=== PATIENT | female | born 1965 | race Caucasian/White ===

== ENCOUNTER 2019-05-27 14:09 | Inpatient (IN) | payer MEDICAID ==
[~2019-05-27] VITALS: Ht 162.6 cm; Wt 84.3 kg
[2019-05-27 14:43] LABS: MEAN PLATELET VOLUME 10.2 FL (7.4-10.4); PLATELET COUNT 291 X10'3 (140-440); WHITE BLOOD COUNT 13.6 X10'3 (4.5-11.0)
[2019-05-27] MEDS ORDERED: normal saline 1000ML IV soln IVB ONE ×2 (14:50→15:35)
[2019-05-27] MEDS ORDERED: LORazepam 2 mg/ml vial IV ONE (15:00)
[2019-05-27] MEDS ORDERED: metoclopramide 5 mg/ml inj IV ONE (15:00)
[2019-05-27 15:11] LABS: HEMATOCRIT 38.7 % (35.0-45.0); MEAN CORPUSCULAR HEMOGLOBIN 28.7 PG (27.0-31.0); MEAN CORPUSCULAR VOLUME 87.1 FL (78-98); RED BLOOD COUNT 4.45 X10'6 (4.20-5.60); RED CELL DISTRIBUTION WIDTH 14.4 % (11.5-14.5)
[2019-05-27 15:12] LABS: HEMOGLOBIN 12.8 g/dl (12.0-16.0)
[2019-05-27 15:15] LABS: ALANINE AMINOTRANSFERASE 39 U/L (12-78); ALBUMIN 4.1 G/DL (3.4-5.0); ALBUMIN/GLOBULIN RATIO 1.1 (1.1-1.5); ALKALINE PHOSPHATASE 167 IU/L (46-116); ANION GAP 22 (8-16); BILIRUBIN,TOTAL 0.4 MG/DL (0.1-1.0); BLOOD UREA NITROGEN 11 MG/DL (7-18); BUN/CREATININE RATIO 13.6 (6.6-38.0); CALCIUM 9.3 MG/DL (8.5-10.1); CHLORIDE 100 MMOL/L (99-107); CREATININE 0.81 MG/DL (0.40-0.90); GLUCOSE 322 MG/DL (70-104); SODIUM 136 MMOL/L (135-145); TOTAL PROTEIN 7.7 G/DL (6.4-8.2); eGFR 75 ML/MIN
[2019-05-27 15:20] LABS: PLATELET ESTIMATE NORMAL; TOTAL CELLS COUNTED 100
[2019-05-27] MEDS ORDERED: fentaNYL/PF 50MCG/1 ML 2ML syringe IV ONE (15:20)
[2019-05-27 15:21] LABS: ANISOCYTOSIS 1+; LARGE PLATELETS FEW
[2019-05-27 15:26] LABS: ASPARTATE AMINO TRANSFERASE 38 U/L (10-37); POTASSIUM 4.3 MMOL/L (3.5-5.1)
[2019-05-27 15:28] LABS: LIPASE 11108 U/L (73-393)
[2019-05-27 15:30] LABS: TOTAL CARBON DIOXIDE 13.8 MMOL/L (24-32)
[2019-05-27 16:16] LABS: ABG BASE EXCESS -7.9 mmol/L (-2.0-3.0); ABG PH (T) 7.331 (7.350-7.450); ALLEN'S TEST POSITIVE; FCOHb 2.1 % (0.5-1.5); FMetHb 0.1 % (0.3-1.12); FO2Hb 92.9 % (94-100); TOTAL HEMOGLOBIN 12.5 G/dl (12.0-16.0)
[2019-05-27] MEDS ORDERED: proCHLORperazine 10 MG/2 ml inj IV STA (16:31)
[2019-05-27] MEDS ORDERED: ketorolac trometh. 30mg/ml inj. IV ONE (16:45)
[2019-05-27 16:52] LABS: CLARITY,URINE CLEAR (Clear); COLOR,URINE YELLOW (Yellow); GLUCOSE, URINE >=1000 mg/dl (Neg); KETONES,URINE 40 mg/dl (Neg); LEUKOCYTE ESTERASE ,URINE NEGATIVE (Neg); NITRITES, URINE NEGATIVE (Neg); OCCULT BLOOD,URINE NEGATIVE (Neg); PROTEIN,URINE TRACE mg/dl (Neg); URINE HCG NEGATIVE (NEG); UROBILINOGEN,URINE 0.2 E.U/dL (0.2-1.0)
[2019-05-27 17:08] LABS: UA COLLECTION TYPE STRAIGHT CATH
[2019-05-27 17:09] LABS: BACTERIA,URINE NONE SEEN /HPF (Neg); MUCUS STRANDS FEW /LPF (Neg); RBC,URINE NONE SEEN /HPF (0-2); SQUAMOUS EPITHELIAL CELL,UR NONE SEEN /LPF (FEW); WBC,URINE NONE SEEN /HPF (0-4)
--- NOTE | 2019-05-27 17:16 | NUR ---
spoke to md valadez regarding bg of 271 and [address] insulin order. Dr. Valadez said to hold off on insulin bolus and IV insulin drip
--- NOTE | 2019-05-27 17:20 | NUR ---
Spoke to dr. valadez and he wants the insulin drip at 3mls/hr but no insulin bolus. spoke to him of the cp pt. is experiencing and he wants a repeat ekg
[2019-05-27] MEDS ORDERED: normal saline 1000ml 1,000 ML IV SCH ×2 (17:23→18:27)
[2019-05-27] MEDS ORDERED: mag hydrox/Alum hydrox/simeth 30ml oral suspension PO PRN (17:25)
[2019-05-27] MEDS: Insulin Reg/NS 100units/100mL 100 ML IV PRN ×2 (17:25→23:27)
[2019-05-27] MEDS ORDERED: magnesium hydroxide 30ml (MOM) UD suspension PO PRN (17:25)
[2019-05-27] MEDS ORDERED: potassium Cl 20 mEq SR tablet PO PRN ×4 (17:25→18:30)
[2019-05-27] MEDS ORDERED: acetaminophen 325mg tablet PO PRN (17:25)
[2019-05-27] MEDS ORDERED: ondansetron/PF 4mg/2ml inj IV PRN (17:25)
[2019-05-27] MEDS ORDERED: potassium CL 10mEq/100ml bag 100 ML IV PRN ×4 (17:25→18:30)
[2019-05-27] MEDS ORDERED: magnesium 4gm in 100ml NS 100 ML IV PRN (17:25)
[2019-05-27] MEDS ORDERED: magnesium Cl slow-release 64mg tablet PO PRN (17:25)
[2019-05-27] MEDS ORDERED: magnesium 2GM in 50ml NS 50 ML IV PRN (17:25)
[2019-05-27] MEDS ORDERED: MULT-467 PO (18:12)
[2019-05-27] MEDS ORDERED: ASCO500C15 PO (18:12)
[2019-05-27] MEDS ORDERED: FAMO20TA8 PO (18:12)
[2019-05-27] MEDS ORDERED: MELA3TAB64 PO (18:12)
[2019-05-27] MEDS ORDERED: Insulin Reg/NS 100units/100mL 100 ML IV SCH (18:27)
[2019-05-27] MEDS ORDERED: sodium bicarbonate (8.4%) inj. 50 MEQ in dextrose 5% water 500ml 250 ML IV PRN (18:27)
[2019-05-27] MEDS ORDERED: sodium bicarbonate (8.4%) inj. 100 MEQ in dextrose 5% water 500ml 500 ML IV PRN (18:27)
[2019-05-27] MEDS ORDERED: insulin regular, human vial - multi-dose IV PRN (18:30)
[2019-05-27] MEDS ORDERED: sodium phosphate inj. 30 MMOL in dextrose 5%-water 250 ML IV PRN (18:30)
[2019-05-27] MEDS ORDERED: Neutra Phos packet PO PRN (18:30)
[2019-05-27] MEDS ORDERED: sodium phosphate inj. 15 MMOL in dextrose 5%-water 150 ML IV PRN (18:30)
--- NOTE | 2019-05-27 19:00 | NUR ---
Patient in room PCU 3024. I have received report from Hermelindo PEREZ by phone and had the opportunity to ask questions and assume patient care.
[2019-05-27 19:08] LABS: TOTAL CARBON DIOXIDE 16.6 MMOL/L (24-32)
[2019-05-27 19:15] VITALS: BP 170/90
[2019-05-27 19:58] LABS: ANION GAP 18 (8-16); BLOOD UREA NITROGEN 7 MG/DL (7-18); BUN/CREATININE RATIO 10.3 (6.6-38.0); CALCIUM 8.2 MG/DL (8.5-10.1); CHLORIDE 101 MMOL/L (99-107); CREATININE 0.68 MG/DL (0.40-0.90); GLUCOSE 304 MG/DL (70-104); SODIUM 136 MMOL/L (135-145); eGFR > 90 ML/MIN
[2019-05-27 19:59] LABS: ALBUMIN 3.8 G/DL (3.4-5.0); CHOL/HDL RATIO 15.4 (0.00-4.99); CHOLESTEROL 432 MG/DL (0-200); HDL CHOLESTEROL 28 MG/DL (35-60); LDL CHOLESTEROL 83 MG/DL (50-100); MAGNESIUM 1.2 MG/DL (1.5-2.4); PHOSPHORUS 2.8 MG/DL (2.3-4.5); POTASSIUM 4.3 MMOL/L (3.5-5.1)
[2019-05-27] MEDS: K and/or MAG REPLACEMENT MC SCH ×2 (20:00)
[2019-05-27] MEDS: famotidine 20mg tablet PO SCH (20:00)
[2019-05-27] MEDS ORDERED: famotidine/PF 10 mg/ml inj IV SCH (20:00)
[2019-05-27 20:20] LABS: TRIGLYCERIDES 4381 MG/DL (20-135)
[2019-05-27] MEDS ORDERED: dextrose 5%-1/2 normal saline 1,000 ML IV SCH (21:25)
[2019-05-27] MEDS: Melatonin 3mg tablet PO SCH (21:58)
[2019-05-27 22:00] VITALS: BP 146/99
[2019-05-27 22:36] LABS: ALBUMIN 2.8 G/DL (3.4-5.0); ANION GAP 15 (8-16); CHLORIDE 97 MMOL/L (99-107); GLUCOSE 321 MG/DL (70-104); POTASSIUM 3.8 MMOL/L (3.5-5.1); SODIUM 129 MMOL/L (135-145); TOTAL CARBON DIOXIDE 16.7 MMOL/L (24-32)
[2019-05-27 22:37] LABS: BLOOD UREA NITROGEN 2 MG/DL (7-18); BUN/CREATININE RATIO 5.1 (6.6-38.0); CREATININE 0.39 MG/DL (0.40-0.90); PHOSPHORUS 1.9 MG/DL (2.3-4.5); eGFR > 90 ML/MIN
[2019-05-27 22:39] LABS: CALCIUM 5.7 MG/DL (8.5-10.1); MAGNESIUM 0.9 MG/DL (1.5-2.4)
[2019-05-27] MEDS: potassium CL 20mEq in D5-1/2NS 1,000 ML IV PRN ×2 (22:48→23:28)
[2019-05-28] MEDS: potassium CL 20mEq in D5-1/2NS 1,000 ML IV PRN ×3 (00:14→20:02)
[2019-05-28] MEDS: ketorolac trometh. 30mg/ml inj. IV PRN ×2 (00:18→14:03)
[2019-05-28 02:00] VITALS: BP 123/71
[2019-05-28 02:02] LABS: ALBUMIN 2.8 G/DL (3.4-5.0); ANION GAP 15 (8-16); CALCIUM 6.2 MG/DL (8.5-10.1); CHLORIDE 98 MMOL/L (99-107); SODIUM 128 MMOL/L (135-145); TOTAL CARBON DIOXIDE 15.5 MMOL/L (24-32)
[2019-05-28 02:17] LABS: CREATININE 0.44 MG/DL (0.40-0.90); GLUCOSE 291 MG/DL (70-104); eGFR > 90 ML/MIN
[2019-05-28 02:18] LABS: MAGNESIUM 2.5 MG/DL (1.5-2.4)
[2019-05-28 02:37] LABS: BLOOD UREA NITROGEN 6 MG/DL (7-18); BUN/CREATININE RATIO 13.6 (6.6-38.0)
--- NOTE | 2019-05-28 05:00 | NUR ---
END NOC NOTE Patient had critical Magnesium and Calcium, MD Rich notified, no new orders for calcium replacement and will replace magnesium by protocol. Will continue to monitor.
[2019-05-28 06:30] VITALS: BP 97/53
--- NOTE | 2019-05-28 06:42 | NUR ---
Problems reprioritized. Patient report given, questions answered & plan of care reviewed with Mary PEREZ.
[2019-05-28 06:54] LABS: ALBUMIN 2.6 G/DL (3.4-5.0); ANION GAP 10 (8-16); BLOOD UREA NITROGEN 6 MG/DL (7-18); BUN/CREATININE RATIO 7.7 (6.6-38.0); CALCIUM 6.8 MG/DL (8.5-10.1); CHLORIDE 100 MMOL/L (99-107); CREATININE 0.78 MG/DL (0.40-0.90); GLUCOSE 213 MG/DL (70-104); PHOSPHORUS 2.2 MG/DL (2.3-4.5); POTASSIUM 3.6 MMOL/L (3.5-5.1); SODIUM 131 MMOL/L (135-145); TOTAL CARBON DIOXIDE 21.2 MMOL/L (24-32); eGFR 78 ML/MIN
--- NOTE | 2019-05-28 06:56 | NUR ---
Patient in room PCU 3024. I have received report from ANA ZUNIGA and had the opportunity to ask questions and assume patient care.
[2019-05-28 07:20] LABS: HEMATOCRIT 39.5 % (35.0-45.0); HEMOGLOBIN 12.3 g/dl (12.0-16.0); MEAN CORPUSCULAR HEMOGLOBIN 27.2 PG (27.0-31.0); MEAN CORPUSCULAR HGB CONC 31.2 g/dL (33.0-36.5); MEAN CORPUSCULAR VOLUME 87.3 FL (78-98); MEAN PLATELET VOLUME 11.4 FL (7.4-10.4); PLATELET COUNT 268 X10'3 (140-440); RED BLOOD COUNT 4.52 X10'6 (4.20-5.60); RED CELL DISTRIBUTION WIDTH 14.7 % (11.5-14.5)
[2019-05-28 07:22] LABS: LIPASE 5119 U/L (73-393)
[2019-05-28 07:38] LABS: HEMOGLOBIN A1C 12.7 % (4.5-6.2)
[2019-05-28] MEDS: ascorbic acid 500mg tablet PO SCH (07:52)
[2019-05-28] MEDS: multivitamins, therapeutics tablet PO SCH (07:52)
[2019-05-28] MEDS: famotidine 20mg tablet PO SCH ×2 (07:52→19:54)
[2019-05-28] MEDS: enoxaparin 40mg/0.4ml syringe SQ SCH (07:53)
[2019-05-28] MEDS ORDERED: glucagon, human recombinant 1mg kit SUBCUT PRN (07:55)
[2019-05-28] MEDS ORDERED: dextrose 50%-water 50ml dispensing syringe IV PRN ×2 (07:55)
[2019-05-28] MEDS ORDERED: dextrose ORAL solution 15 GM/59 ML bottle PO PRN ×2 (07:55)
[2019-05-28] MEDS: K and/or MAG REPLACEMENT MC SCH ×4 (08:00→20:00)
--- NOTE | 2019-05-28 08:03 | NUR ---
PAGED DR. MONDRAGON PAGER ID: [phone] MESSAGE: NAIMA GUZMÁN [id number] LESLIE ANTONIO PT AG 10 CO2 21.2 ON INSULIN @4 D5 1/2 NS@ 50 PT ATE BREAKFAST CURRENT BLOOD SUGAR 192 DO YOU WANT TO TREAT PER PROTOCOL
--- NOTE | 2019-05-28 08:14 | NUR ---
spoke to DR. Noguera she wants to keep pt NPO. cover the carbs from breakfast per protocol. keep pt on insulin gtt. Addendum: 05/28/19 at 0817 by Mary Dozier RN pharmacy has been called for don
[2019-05-28 08:18] LABS: TOTAL CELLS COUNTED 100
[2019-05-28 08:20] LABS: PLATELET ESTIMATE NORMAL
[2019-05-28 08:21] LABS: LARGE PLATELETS FEW; POLYCHROMASIA FEW; SPHEROCYTES FEW
[2019-05-28] MEDS: insulin Lispro (HumaLOG) vial - multi-dose SQ SCH (08:38)
[2019-05-28] MEDS: acetaminophen 325mg tablet PO PRN ×2 (08:47→16:52)
[2019-05-28] MEDS ORDERED: sodium phosphate inj. 15 MMOL in dextrose 5%-water 250 ML IV PRN (09:02)
[2019-05-28 10:49] LABS: ALBUMIN 2.4 G/DL (3.4-5.0); ANION GAP 9 (8-16); BLOOD UREA NITROGEN 10 MG/DL (7-18); BUN/CREATININE RATIO 9.9 (6.6-38.0); CALCIUM 7.1 MG/DL (8.5-10.1); CHLORIDE 101 MMOL/L (99-107); CREATININE 1.01 MG/DL (0.40-0.90); SODIUM 130 MMOL/L (135-145); TOTAL CARBON DIOXIDE 19.6 MMOL/L (24-32); eGFR 58 ML/MIN
[2019-05-28 10:50] LABS: GLUCOSE 266 MG/DL (70-104); POTASSIUM 3.5 MMOL/L (3.5-5.1)
[2019-05-28 10:59] VITALS: BP 97/49
--- NOTE | 2019-05-28 11:34 | NUR ---
PAGED DR. MONDRAGON promotional table spacer PAGER ID: [phone] MESSAGE: MARY GUZMÁN 6219 LESLIE ANTONIO AG 9 AND C02 19.6 INSULIN @ 4 D5 1/2NS 20K @ 50 BLOOD SUGAR 224. DO YOU WANT ANY CHANGES? Addendum: 05/28/19 at 1140 by Mary Dozier RN SPOKE WITH ALANNA KNOWLES. SHE WANTS INSULIN, FLUIDS ALL TO REMAIN THE SAME. SHE DOES NOT WANT ANY CHANGES
[2019-05-28] MEDS: Insulin Reg/NS 100units/100mL 100 ML IV PRN (14:05)
[2019-05-28 15:26] LABS: ALBUMIN 2.4 G/DL (3.4-5.0); ANION GAP 13 (8-16); BLOOD UREA NITROGEN 10 MG/DL (7-18); BUN/CREATININE RATIO 10.6 (6.6-38.0); CALCIUM 7.4 MG/DL (8.5-10.1); CHLORIDE 100 MMOL/L (99-107); CREATININE 0.94 MG/DL (0.40-0.90); SODIUM 133 MMOL/L (135-145); TOTAL CARBON DIOXIDE 20.5 MMOL/L (24-32); eGFR 63 ML/MIN
[2019-05-28 15:31] LABS: GLUCOSE 189 MG/DL (70-104); POTASSIUM 3.3 MMOL/L (3.5-5.1)
[2019-05-28 15:33] VITALS: BP 98/49
--- NOTE | 2019-05-28 15:45 | NUR ---
PAGED DR. MONDRAGON PAGER ID: [phone] MESSAGE: NAIMA U 3031 PACO, LESLIE HAS ONLY VOIDED ONE TIME TODAY 75ML, BLADDER SCANNED ONLY 39ML IN BLADDER. K 3.3. THANK YOU
--- NOTE | 2019-05-28 15:53 | NUR ---
SPOKE WITH DR. MONDRAGON NOTIFIED HER OF POOR URINE OUTPUT AND ONLY 39ML WHEN BLADDER SCANNED, NO URGE TO VOID. BP'S ON THE LOWER SIDE. K 3.3 INCREASE OF CREATNINE 0.94. ASKED IF WE SHOULD D/C TORADOL. PER DR. MONDRAGON D/C TORADOL. GIVE 20K PO X1 INCREASE D5 1/2NS W/ 20 K TO 100.
[2019-05-28] MEDS ORDERED: potassium Cl 20 mEq SR tablet PO STA ×2 (15:59→16:37)
--- NOTE | 2019-05-28 16:40 | NUR ---
per dr. pal increase iv fluids to 150, increase insulin to 5units, give 40k po now. abg in am lipase in am, watch urine output
[2019-05-28 18:00] VITALS: BP 93/59
--- NOTE | 2019-05-28 18:00 | NUR ---
Patient in room PCU 3024. I have received report from Mary PEREZ and had the opportunity to ask questions and assume patient care.
--- NOTE | 2019-05-28 18:10 | NUR ---
Problems reprioritized. Patient report given, questions answered & plan of care reviewed with ANA ZUNIGA.
[2019-05-28 19:50] LABS: ALBUMIN 2.3 G/DL (3.4-5.0); ANION GAP 8 (8-16); BLOOD UREA NITROGEN 10 MG/DL (7-18); CHLORIDE 102 MMOL/L (99-107); SODIUM 132 MMOL/L (135-145); TOTAL CARBON DIOXIDE 22.3 MMOL/L (24-32); eGFR 58 ML/MIN
[2019-05-28] MEDS: Melatonin 3mg tablet PO SCH (19:55)
[2019-05-28 20:02] LABS: GLUCOSE 170 MG/DL (70-104); POTASSIUM 3.6 MMOL/L (3.5-5.1)
[2019-05-28] MEDS: insulin glargine (Lantus) pen - multi-dose SQ SCH (21:00)
[2019-05-28 22:00] VITALS: BP 110/48
[2019-05-28] MEDS: traMADol 50MG tablet PO PRN (22:52)
[2019-05-29] VITALS (7 sets, daily range): BP systolic 86–116; BP diastolic 56–77
--- NOTE | 2019-05-29 03:40 | NUR ---
PAGER ID: [phone] MESSAGE: [phone] Agustina Lyles: Patient is an unbelievably difficult stick for labs, still unable to get labs, can I get an order for a PICC? DKA 2 days Q4 hour labs. Cherri PEREZ [id number]
[2019-05-29 04:00] LABS: BASOPHILS # (AUTO) 0.1 X10'3 (0-0.2); BASOPHILS % (AUTO) 0.5 % (0-1); EOSINOPHILS # (AUTO) 0.4 X10'3 (0-0.9); HEMATOCRIT 32.5 % (35.0-45.0); HEMOGLOBIN 11.1 g/dl (12.0-16.0); LYMPHOCYTES # (AUTO) 2.4 X10'3 (1.1-4.8); LYMPHOCYTES % (AUTO) 16.6 % (21-51); MEAN CORPUSCULAR HEMOGLOBIN 28.9 PG (27.0-31.0); MEAN PLATELET VOLUME 9.5 FL (7.4-10.4); MONOCYTES # (AUTO) 0.9 X10'3 (0-0.9); NEUTROPHILS # (AUTO) 10.8 X10'3 (1.8-7.7); NEUTROPHILS % (AUTO) 73.9 % (42-75); PLATELET COUNT 207 X10'3 (140-440); RED BLOOD COUNT 3.83 X10'6 (4.20-5.60); RED CELL DISTRIBUTION WIDTH 14.3 % (11.5-14.5); WHITE BLOOD COUNT 14.7 X10'3 (4.5-11.0)
[2019-05-29 04:07] LABS: ALBUMIN 2.1 G/DL (3.4-5.0); ANION GAP 10 (8-16); BLOOD UREA NITROGEN 8 MG/DL (7-18); BUN/CREATININE RATIO 9.2 (6.6-38.0); CALCIUM 7.5 MG/DL (8.5-10.1); CHLORIDE 104 MMOL/L (99-107); CREATININE 0.87 MG/DL (0.40-0.90); GLUCOSE 175 MG/DL (70-104); LIPASE 1366 U/L (73-393); PHOSPHORUS 1.7 MG/DL (2.3-4.5); SODIUM 133 MMOL/L (135-145); TOTAL CARBON DIOXIDE 19.4 MMOL/L (24-32); eGFR 69 ML/MIN
[2019-05-29 04:08] LABS: POTASSIUM 4.3 MMOL/L (3.5-5.1)
--- NOTE | 2019-05-29 06:29 | NUR ---
Patient in room PCU 3024. I have received report from Cherri PEREZ and had the opportunity to ask questions and assume patient care.
--- NOTE | 2019-05-29 06:49 | NUR ---
Problems reprioritized. Patient report given, questions answered & plan of care reviewed with Tatyana PEREZ.
[2019-05-29 07:33] LABS: ALBUMIN 2.2 G/DL (3.4-5.0); ANION GAP 9 (8-16); BLOOD UREA NITROGEN 9 MG/DL (7-18); BUN/CREATININE RATIO 10.3 (6.6-38.0); CALCIUM 7.9 MG/DL (8.5-10.1); CHLORIDE 105 MMOL/L (99-107); CREATININE 0.87 MG/DL (0.40-0.90); GLUCOSE 152 MG/DL (70-104); PHOSPHORUS 1.8 MG/DL (2.3-4.5); SODIUM 134 MMOL/L (135-145); TOTAL CARBON DIOXIDE 19.7 MMOL/L (24-32); eGFR 69 ML/MIN
[2019-05-29 07:38] LABS: POTASSIUM 4.1 MMOL/L (3.5-5.1)
[2019-05-29] MEDS: multivitamins, therapeutics tablet PO SCH (07:38)
[2019-05-29] MEDS: ascorbic acid 500mg tablet PO SCH (07:38)
[2019-05-29] MEDS: famotidine 20mg tablet PO SCH ×2 (07:38→18:56)
[2019-05-29] MEDS: enoxaparin 40mg/0.4ml syringe SQ SCH (07:39)
[2019-05-29] MEDS: potassium CL 20mEq in D5-1/2NS 1,000 ML IV PRN ×4 (07:44→22:29)
[2019-05-29] MEDS: K and/or MAG REPLACEMENT MC SCH ×4 (07:46→20:00)
[2019-05-29] MEDS ORDERED: sodium bicarbonate (8.4%) inj. 50 MEQ in dextrose 5% water 500ml 250 ML IV PRN (10:43)
[2019-05-29] MEDS ORDERED: sodium bicarbonate (8.4%) inj. 100 MEQ in dextrose 5% water 500ml 500 ML IV PRN (10:43)
--- NOTE | 2019-05-29 11:00 | NUR ---
Dr. Cope at bedside, discussed with MD that pts chemistries had corrected but Lipase level was at 1366. Per Dr. Cope, do not stop the insulin gtt or fluids. Received a verbal order to just go ahead and titrate the insulin down to one if needed. Per MD, the patient will most likely eat tomorrow, depending on the lipase lab level. Will continue to monitor closely.
[2019-05-29] MEDS: Insulin Reg/NS 100units/100mL 100 ML IV SCH (12:19)
[2019-05-29 12:22] LABS: ALBUMIN 2.3 G/DL (3.4-5.0); ANION GAP 5 (8-16); BLOOD UREA NITROGEN 7 MG/DL (7-18); BUN/CREATININE RATIO 8.6 (6.6-38.0); CALCIUM 7.9 MG/DL (8.5-10.1); CHLORIDE 105 MMOL/L (99-107); CREATININE 0.81 MG/DL (0.40-0.90); GLUCOSE 156 MG/DL (70-104); MAGNESIUM 1.7 MG/DL (1.5-2.4); PHOSPHORUS 1.7 MG/DL (2.3-4.5); SODIUM 134 MMOL/L (135-145); TOTAL CARBON DIOXIDE 23.7 MMOL/L (24-32); eGFR 75 ML/MIN
[2019-05-29 12:26] LABS: POTASSIUM 4.3 MMOL/L (3.5-5.1)
[2019-05-29] MEDS: acetaminophen 325mg tablet PO PRN (12:27)
--- NOTE | 2019-05-29 13:31 | NUR ---
DM consult: Pt admitted for acute pancreatitis and DKA. Pt A1c currently documented at 12.7. RD internal communications writer visited pt at bedside and provided written and verbal pancreatitis education, hypertriglyceride education and DM education with referral to CDE course and RD contact information. Pt reports she has not taken her DM meds for a year d/t running out and her insurance not covering it. She also reports not checking her blood sugar. She states she is currently in the process of switching her doctor to [facility] and will make an appointment with them once the paperwork is processed. RD internal communications writer encouraged pt to have regular doctor visits for her DM management. Pt reports frequently getting pancreatitis, almost once a month, RD internal communications writer emphasized the importance of a low fat diet and proper DM management. Pt reports allergy to honey, d/w dietary. LB 2/. Will continue to monitor. rec: 1. advanced diet as medically indicated to low fat, carb controlled diet 2. bowel care as needed 3. weight per rx Addendum: 05/29/19 at [address] Amended: Links added. Addendum: 05/29/19 at [address] RD agree with note
[2019-05-29 15:53] LABS: ALBUMIN 2.4 G/DL (3.4-5.0); ANION GAP 9 (8-16); BLOOD UREA NITROGEN 6 MG/DL (7-18); BUN/CREATININE RATIO 7.8 (6.6-38.0); CALCIUM 8.4 MG/DL (8.5-10.1); CHLORIDE 107 MMOL/L (99-107); CREATININE 0.77 MG/DL (0.40-0.90); GLUCOSE 123 MG/DL (70-104); MAGNESIUM 1.8 MG/DL (1.5-2.4); PHOSPHORUS 1.6 MG/DL (2.3-4.5); SODIUM 138 MMOL/L (135-145); TOTAL CARBON DIOXIDE 21.7 MMOL/L (24-32); eGFR 79 ML/MIN
[2019-05-29 15:54] LABS: POTASSIUM 4.2 MMOL/L (3.5-5.1)
[2019-05-29] MEDS ORDERED: Insulin Reg/NS 100units/100mL 100 ML IV PRN (16:32)
[2019-05-29] MEDS: traMADol 50MG tablet PO PRN (17:09)
--- NOTE | 2019-05-29 18:00 | NUR ---
Patient in room PCU 3024. I have received report from Tatyana PEREZ and had the opportunity to ask questions and assume patient care.
--- NOTE | 2019-05-29 18:06 | NUR ---
Problems reprioritized. Patient report given, questions answered & plan of care reviewed with Cherri PEREZ.
--- NOTE | 2019-05-29 18:08 | NUR ---
Changed pts insulin gtt to 3 u/hr per orders, notified PAGER ID: [phone] MESSAGE: David [phone] Robert [id number], FYI, per protocol and following your orders, I decreased the pts insulin gtt to 3u/hr due to pts blood glucose trending down to 101. Will continue to monitor closely.
[2019-05-29] MEDS: Melatonin 3mg tablet PO SCH (18:57)
--- NOTE | 2019-05-29 19:09 | NUR ---
PAGER ID: [phone] MESSAGE: [phone] Agustina Lyles: Kidney function improved, still having a migraine, Tylenol and tramadol not working now for two days. Order for something stronger? Cherri PEREZ [phone]
[2019-05-29 20:17] LABS: ALBUMIN 2.3 G/DL (3.4-5.0); ANION GAP 7 (8-16); BLOOD UREA NITROGEN 6 MG/DL (7-18); BUN/CREATININE RATIO 8.1 (6.6-38.0); CALCIUM 8.2 MG/DL (8.5-10.1); CHLORIDE 107 MMOL/L (99-107); CREATININE 0.74 MG/DL (0.40-0.90); GLUCOSE 157 MG/DL (70-104); MAGNESIUM 1.7 MG/DL (1.5-2.4); PHOSPHORUS 1.8 MG/DL (2.3-4.5); POTASSIUM 4.3 MMOL/L (3.5-5.1); SODIUM 136 MMOL/L (135-145); TOTAL CARBON DIOXIDE 22.3 MMOL/L (24-32); eGFR 83 ML/MIN
[2019-05-29] MEDS ORDERED: aspirin/acetaminophen/caffeine tablet PO PRN (20:50)
[2019-05-29] MEDS: insulin glargine (Lantus) pen - multi-dose SQ SCH (21:00)
--- NOTE | 2019-05-29 21:14 | NUR ---
PAGER ID: [phone] MESSAGE: [phone] Agustina Lyles: Pharmacy out of Excedrin, can we try Imitrex instead then? Cherri PEREZ [phone]
[2019-05-29] MEDS: SUMAtriptan 25 MG tablet PO PRN (22:14)
[2019-05-29 23:59] LABS: ALBUMIN 2.2 G/DL (3.4-5.0); ANION GAP 7 (8-16); BLOOD UREA NITROGEN 5 MG/DL (7-18); BUN/CREATININE RATIO 7.1 (6.6-38.0); CALCIUM 8.3 MG/DL (8.5-10.1); CHLORIDE 106 MMOL/L (99-107); GLUCOSE 151 MG/DL (70-104); MAGNESIUM 1.6 MG/DL (1.5-2.4); PHOSPHORUS 2.2 MG/DL (2.3-4.5); POTASSIUM 4.4 MMOL/L (3.5-5.1); SODIUM 135 MMOL/L (135-145); TOTAL CARBON DIOXIDE 21.9 MMOL/L (24-32); eGFR 88 ML/MIN
[2019-05-30 02:00] VITALS: BP 121/82
--- NOTE | 2019-05-30 03:49 | NUR ---
Waiting for MD callback Another 500ml bolus given. Bipap is off. Blood pressure map back up to 50s. Addendum: 05/30/19 at 0351 by Cherri Armas RN wrong patient.
[2019-05-30 04:28] LABS: BASOPHILS % (AUTO) 0.3 % (0-1); EOSINOPHILS # (AUTO) 0.6 X10'3 (0-0.9); EOSINOPHILS % (AUTO) 3.9 % (0-6); HEMATOCRIT 29.4 % (35.0-45.0); HEMOGLOBIN 9.7 g/dl (12.0-16.0); LYMPHOCYTES # (AUTO) 2.9 X10'3 (1.1-4.8); LYMPHOCYTES % (AUTO) 20.1 % (21-51); MEAN CORPUSCULAR HEMOGLOBIN 28.7 PG (27.0-31.0); MEAN CORPUSCULAR HGB CONC 33.2 g/dL (33.0-36.5); MEAN CORPUSCULAR VOLUME 86.5 FL (78-98); MONOCYTES # (AUTO) 0.6 X10'3 (0-0.9); MONOCYTES % (AUTO) 4.6 % (2-12); NEUTROPHILS # (AUTO) 10.1 X10'3 (1.8-7.7); NEUTROPHILS % (AUTO) 71.1 % (42-75); PLATELET COUNT 217 X10'3 (140-440); RED BLOOD COUNT 3.39 X10'6 (4.20-5.60); RED CELL DISTRIBUTION WIDTH 14.8 % (11.5-14.5); WHITE BLOOD COUNT 14.2 X10'3 (4.5-11.0)
[2019-05-30 04:39] LABS: ANION GAP 5 (8-16); BLOOD UREA NITROGEN 4 MG/DL (7-18); BUN/CREATININE RATIO 5.6 (6.6-38.0); CALCIUM 8.1 MG/DL (8.5-10.1); CHLORIDE 108 MMOL/L (99-107); CREATININE 0.72 MG/DL (0.40-0.90); GLUCOSE 183 MG/DL (70-104); LIPASE 602 U/L (73-393); MAGNESIUM 1.5 MG/DL (1.5-2.4); PHOSPHORUS 2.2 MG/DL (2.3-4.5); SODIUM 136 MMOL/L (135-145); TOTAL CARBON DIOXIDE 23.3 MMOL/L (24-32); eGFR 85 ML/MIN
[2019-05-30 04:45] LABS: POTASSIUM 4.7 MMOL/L (3.5-5.1)
[2019-05-30 06:00] VITALS: BP 123/78
--- NOTE | 2019-05-30 06:00 | NUR ---
Patient in room PCU 3027. I have received report from Cherri PEREZ and had the opportunity to ask questions and assume patient care.
--- NOTE | 2019-05-30 06:10 | NUR ---
Problems reprioritized. Patient report given, questions answered & plan of care reviewed with Tatyana PEREZ.
[2019-05-30] MEDS: K and/or MAG REPLACEMENT MC SCH ×2 (07:09→07:10)
[2019-05-30] MEDS: famotidine 20mg tablet PO SCH (07:12)
[2019-05-30] MEDS: multivitamins, therapeutics tablet PO SCH (07:12)
[2019-05-30] MEDS: enoxaparin 40mg/0.4ml syringe SQ SCH (07:12)
[2019-05-30] MEDS: acetaminophen 325mg tablet PO PRN (07:12)
[2019-05-30] MEDS: ascorbic acid 500mg tablet PO SCH (07:12)
[2019-05-30] MEDS: potassium CL 20mEq in D5-1/2NS 1,000 ML IV PRN (07:41)
[2019-05-30] MEDS: Insulin Reg/NS 100units/100mL 100 ML IV SCH (07:42)
[2019-05-30 08:46] LABS: ALBUMIN 2.2 G/DL (3.4-5.0); ANION GAP 6 (8-16); BLOOD UREA NITROGEN 4 MG/DL (7-18); BUN/CREATININE RATIO 4.9 (6.6-38.0); CALCIUM 8.4 MG/DL (8.5-10.1); CHLORIDE 107 MMOL/L (99-107); CREATININE 0.82 MG/DL (0.40-0.90); GLUCOSE 196 MG/DL (70-104); MAGNESIUM 1.5 MG/DL (1.5-2.4); PHOSPHORUS 2.2 MG/DL (2.3-4.5); POTASSIUM 4.5 MMOL/L (3.5-5.1); SODIUM 136 MMOL/L (135-145); TOTAL CARBON DIOXIDE 22.9 MMOL/L (24-32); eGFR 73 ML/MIN
[2019-05-30 09:31] LABS: TRIGLYCERIDES 772 MG/DL (20-135)
[2019-05-30] MEDS: SUMAtriptan 25 MG tablet PO PRN (10:49)
[2019-05-30 11:00] VITALS: BP 139/67
[2019-05-30] MEDS ORDERED: glucagon, human recombinant 1mg kit SUBCUT PRN (11:05)
[2019-05-30] MEDS ORDERED: insulin Lispro (HumaLOG) vial - multi-dose SQ SCH (11:05)
[2019-05-30] MEDS ORDERED: dextrose ORAL solution 15 GM/59 ML bottle PO PRN ×2 (11:05)
[2019-05-30] MEDS ORDERED: MESSAGE TO PHARMACY PO ONE (11:05)
[2019-05-30] MEDS ORDERED: dextrose 50%-water 50ml dispensing syringe IV PRN ×2 (11:05)
[2019-05-30 11:38] LABS: ALBUMIN 2.4 G/DL (3.4-5.0); ANION GAP 7 (8-16); BLOOD UREA NITROGEN 5 MG/DL (7-18); BUN/CREATININE RATIO 6.5 (6.6-38.0); CALCIUM 8.9 MG/DL (8.5-10.1); CHLORIDE 107 MMOL/L (99-107); CREATININE 0.77 MG/DL (0.40-0.90); GLUCOSE 195 MG/DL (70-104); MAGNESIUM 1.6 MG/DL (1.5-2.4); PHOSPHORUS 2.6 MG/DL (2.3-4.5); POTASSIUM 4.6 MMOL/L (3.5-5.1); SODIUM 138 MMOL/L (135-145); TOTAL CARBON DIOXIDE 24.2 MMOL/L (24-32); eGFR 79 ML/MIN
[2019-05-30] MEDS ORDERED: ATOR20TA66 PO (12:17)
[2019-05-30] MEDS ORDERED: INSU100V11 SQ (12:17)
[2019-05-30] MEDS ORDERED: FENO145T25 PO (12:17)
[2019-05-30] MEDS ORDERED: LISI-604 PO (12:17)
[2019-05-30] MEDS ORDERED: LANTUS SQ (12:17)
[2019-05-30] MEDS ORDERED: METR-159 PO (12:17)
[2019-05-30] MEDS ORDERED: LEVO500T89 PO (12:17)
[2019-05-30] MEDS ORDERED: ASPI-611 PO (12:17)
--- NOTE | 2019-05-30 12:30 | NUR ---
Educated patient on insulin sliding scale, the need for blood sugar checks before meals and at night, insulin management, signs/symptoms of low blood sugar. Educated on Diabetes Survival Skills and free diabetes information sessions that are held weekly. Per patient, she takes the bus home and will most likely not be able to get to a pharmacy tonight to fill prescriptions if she gets discharged. I educated her on the need to obtain her insulin prescription as soon as possible when she gets discharged.
[2019-05-30] MEDS ORDERED: OMEG1CAP PO (12:38)
[2019-05-30] MEDS ORDERED: metroNIDAZOLE 500mg tablet PO ONE (12:40)
[2019-05-30] MEDS ORDERED: levoFLOXACIN 750MG TABLET PO ONE (12:40)
[2019-05-30] MEDS: insulin Lispro (HumaLOG) vial - multi-dose SQ SCH (13:01)
--- NOTE | 2019-05-30 13:50 | NUR ---
Patient stable for discharge per MD orders, discharge packet reviewed with patient, all questions answered, educated on the need to get blood sugar under control with diet and medication, diabetes survival skills provided, moderate insulin sliding scale provided and educated on, new prescriptions sent to [email or web address] in [place], tele monitor and PIV discontinued, all belongings collected and sent with patient, blood sugar check before the patient left the unit, educated on s/sx of hypoglycemia, left the unit at 1350 in wheelchair with RN and family.
--- NOTE | 2019-05-30 17:13 | NUR ---
Patient cannot fill new prescriptions at [facility] in [place] because her insurance doesnt cover them I paged Dr. Alexis re this issue: PAGER ID: [phone] MESSAGE: Tatyana PEREZ [phone] Suzanne Lyles, pt was discharged, her insurance doesn't cover the new insulin rx's, can you please give new Rx for Admelug and Basaglar, thanks!
[2019-05-30] MEDS ORDERED: insulin glargine (Lantus) pen - multi-dose SQ SCH (21:00)
== END 2019-05-30 13:48 | disposition home or self-care (01) | DRG 420 ==
LOC: ER 14:10 → ED HOLD 18:18 → EDBEDREQ 18:21 → PCU 3S 19:00
PROVIDERS: ADMIT Hospitalist; ATTEND Family Medicine
DX: E10.10 Type 1 diabetes mellitus with ketoacidosis without coma (principal); K85.90 Acute pancreatitis without necrosis or infection, unspecified; E83.42 Hypomagnesemia; K86.1 Other chronic pancreatitis; E78.1 Pure hyperglyceridemia; E87.6 Hypokalemia; F17.200 Nicotine dependence, unspecified, uncomplicated; Z91.14 Patient's other noncompliance with medication regimen; Z91.19 Patient's noncompliance with other medical treatment and regimen; Z88.5 Allergy status to narcotic agent
CPT/HCPCS: 36415; 36600; 74176; 80048; 80053; 80061; 81001; 81025; 82800; 82803; 82948; 83036; 83690; 83735; 84100; 84145; 84478; 85018; 85025; 87081; 93005; 96361; 96374; 96375; 99291; G0378; J0780; J1650; J1815; J1885; J2060; J2765; J3010; J3475; J3480; J3490; J7030; J7060

== ENCOUNTER 2021-05-18 12:39 | Emergency (ER) | payer MEDICAID ==
[~2021-05-18] VITALS: Ht 162.6 cm; Wt 90.0 kg
[~2021-05-18 12:39] MED LIST: ASCO500C18 PO; ATOR20TA66 PO; FAMO20TA8 PO; FENO145T25 PO; INSU100V11 SQ; LISI5TAB22 PO; MELA3TAB39 PO; MULT-467 PO; OMEG1CAP61 PO
[2021-05-18 13:09] VITALS: BP 166/95
[2021-05-18] MEDS ORDERED: CLIN-97 PO (14:42)
--- NOTE | 2021-05-18 14:57 | NUR ---
PT SEEN, TREATED AND DC FROM TRIAGE BY PA
== END 2021-05-18 14:58 | disposition home or self-care (01) ==
LOC: ER 12:40
DX: K04.7 Periapical abscess without sinus (principal); E11.9 Type 2 diabetes mellitus without complications; Z72.89 Other problems related to lifestyle; Z91.018 Allergy to other foods; Z88.5 Allergy status to narcotic agent; Z79.2 Long term (current) use of antibiotics; Z79.899 Other long term (current) drug therapy
CPT/HCPCS: 99283

== ENCOUNTER 2021-09-03 21:17 | Inpatient (IN) | payer MEDICAID ==
[~2021-09-03] VITALS: Ht 162.6 cm; Wt 80.0 kg
[~2021-09-03 21:17] MED LIST changes: +CLIN-97 PO
[2021-09-03 21:46] LABS: CLARITY,URINE CLEAR (Clear); COLOR,URINE YELLOW (Yellow); GLUCOSE, URINE >=1000 mg/dl (Neg); KETONES,URINE NEGATIVE (Neg); LEUKOCYTE ESTERASE ,URINE NEGATIVE (Neg); NITRITES, URINE NEGATIVE (Neg); OCCULT BLOOD,URINE NEGATIVE (Neg); PH,URINE 6.5 (4.8-8.0); PROTEIN,URINE NEGATIVE (Neg); UROBILINOGEN,URINE 0.2 E.U/dL (0.2-1.0)
[2021-09-03 21:56] LABS: UA COLLECTION TYPE CLN CATCH MIDSTREAM
[2021-09-03 22:02] LABS: BACTERIA,URINE 1+ /HPF (Neg); MUCUS STRANDS FEW /LPF (Neg); RENAL CELLS, URINE FEW /HPF; SQUAMOUS EPITHELIAL CELL,UR FEW /LPF (FEW)
[2021-09-03] MEDS ORDERED: pantoprazole 40 MG vial IV ONE (22:35)
[2021-09-03] MEDS ORDERED: pantoprazole 40 MG vial IV SCH (22:35)
[2021-09-03] MEDS ORDERED: normal saline 1000ML IV soln IVB ONE (22:35)
[2021-09-03] MEDS ORDERED: pantoprazole 40MG/NS 100ML BAG 100 ML IV ONE (22:50)
[2021-09-03 22:56] LABS: URINE AMPHETAMINE SCREEN NEGATIVE (Neg); URINE BARBITUATE SCREEN NEGATIVE (Neg); URINE BENZODIAZEPINES SCREEN NEGATIVE (Neg); URINE CANNABINOID SCREEN NEGATIVE (Neg); URINE COCAINE SCREEN NEGATIVE (Neg); URINE METHADONE SCREEN NEGATIVE (Neg); URINE OPIATE SCREEN NEGATIVE (Neg); URINE PHENCYCLIDINE SCREEN NEGATIVE (Neg)
[2021-09-03 23:01] LABS: BASOPHILS # (AUTO) 0.1 X10'3 (0-0.2); BASOPHILS % (AUTO) 0.8 % (0-1); EOSINOPHILS # (AUTO) 0.5 X10'3 (0-0.9); EOSINOPHILS % (AUTO) 2.6 % (0-6); LYMPHOCYTES # (AUTO) 3.9 X10'3 (1.1-4.8); LYMPHOCYTES % (AUTO) 22.3 % (21-51); MONOCYTES # (AUTO) 0.9 X10'3 (0-0.9); MONOCYTES % (AUTO) 5.3 % (2-12); NEUTROPHILS # (AUTO) 12.2 X10'3 (1.8-7.7); PLATELET COUNT 436 X10'3 (140-440); RED CELL DISTRIBUTION WIDTH 14.1 % (11.5-14.5); WHITE BLOOD COUNT 17.6 X10'3 (4.5-11.0)
[2021-09-03 23:10] LABS: TOTAL CARBON DIOXIDE 23.5 MMOL/L (24-32)
[2021-09-03 23:33] LABS: HEMOGLOBIN 11.8 g/dl (12.0-16.0); MEAN CORPUSCULAR VOLUME 87.5 FL (78-98)
[2021-09-03 23:34] LABS: MEAN CORPUSCULAR HEMOGLOBIN 29.5 PG (27.0-31.0); MEAN CORPUSCULAR HGB CONC 33.8 g/dL (33.0-36.5); MEAN PLATELET VOLUME 9.6 FL (7.4-10.4)
[2021-09-03 23:48] LABS: ALANINE AMINOTRANSFERASE 34 U/L (12-78); ALKALINE PHOSPHATASE 145 IU/L (46-116); ANION GAP 13 (8-16); BILIRUBIN,TOTAL 0.3 MG/DL (0.1-1.0); BLOOD UREA NITROGEN 17 MG/DL (7-18); BUN/CREATININE RATIO 16.5 (6.6-38.0); CALCIUM 9.6 MG/DL (8.5-10.1); CHLORIDE 98 MMOL/L (99-107); CREATININE 1.03 MG/DL (0.40-0.90); GLUCOSE 333 MG/DL (70-104); SODIUM 134 MMOL/L (135-145); TOTAL PROTEIN 8.2 G/DL (6.4-8.2); eGFR 56 ML/MIN
[2021-09-03 23:54] LABS: POTASSIUM 4.2 MMOL/L (3.5-5.1)
[2021-09-03] MEDS: diatr meglu/diatrizoate 30ml oral sol.-(3 dose) bottle PO SCH (23:56)
[2021-09-04 00:01] LABS: ETHANOL < 0.010 GM/DL (0.0-0.010)
[2021-09-04] MEDS ORDERED: ketorolac trometh. 30mg/ml inj. IV ONE (00:15)
[2021-09-04 00:20] LABS: LIPASE 362 U/L (73-393)
[2021-09-04] MEDS ORDERED: ondansetron/PF 4mg/2ml inj IV ONE (00:35)
[2021-09-04] MEDS: diatr meglu/diatrizoate 30ml oral sol.-(3 dose) bottle PO SCH ×3 (00:38→00:52)
[2021-09-04 00:41] LABS: ASPARTATE AMINO TRANSFERASE 27 U/L (10-37)
[2021-09-04] MEDS ORDERED: HYDROcodone/acetaminophen 5mg/325mg tablet PO PRN (03:50)
[2021-09-04] MEDS ORDERED: HYDROmorphone/PF 0.2 MG/ML SYRINGE IV PRN (03:50)
[2021-09-04] MEDS ORDERED: metoclopramide 5 mg/ml inj IV PRN (03:50)
[2021-09-04] MEDS ORDERED: dextrose 50%-water 50ml dispensing syringe IV PRN ×2 (03:50)
[2021-09-04] MEDS ORDERED: DEXTROSE 15 GM of carb/4 tabs (each vial/BOTTLE has 4 tablets) PO PRN ×2 (03:50)
[2021-09-04] MEDS: normal saline 1000ml 1,000 ML IV SCH ×3 (03:50→23:50)
[2021-09-04] MEDS ORDERED: HYDROmorphone 1 mg/ml syringe IV ONE (03:50)
[2021-09-04] MEDS ORDERED: magnesium hydroxide 30ml (MOM) UD suspension PO PRN (03:50)
[2021-09-04] MEDS ORDERED: MESSAGE TO PHARMACY PO ONE (03:50)
[2021-09-04] MEDS ORDERED: glucagon, human recombinant 1mg kit SUBCUT PRN (03:50)
[2021-09-04] MEDS ORDERED: mag hydrox/Alum hydrox/simeth 30ml oral suspension PO PRN (03:50)
[2021-09-04] MEDS ORDERED: acetaminophen 325mg tablet PO PRN ×2 (03:50)
[2021-09-04 04:56] LABS: HEMOGLOBIN A1C 11.3 % (4.5-6.2)
[2021-09-04] MEDS ORDERED: nicotine 14mg patch - 24hr TD ONE (05:35)
[2021-09-04] MEDS: HYDROcodone/acetaminophen 10/325mg tab PO PRN ×3 (07:03→20:45)
[2021-09-04] MEDS: ondansetron/PF 4mg/2ml inj IV PRN ×2 (07:07→19:45)
[2021-09-04] MEDS: docusate sod 100mg capsule PO SCH ×2 (07:10→20:00)
[2021-09-04] MEDS: enoxaparin 40mg/0.4ml syringe SUBCUT SCH (07:11)
[2021-09-04] MEDS: HYDROmorphone inj. 0.5 MG/0.5 ML DISP.SYRIN IV PRN ×4 (08:58→22:21)
[2021-09-04] MEDS: insulin Lispro (HumaLOG) vial - multi-dose SQ SCH ×3 (09:01→19:43)
[2021-09-04] MEDS ORDERED: ACET-2389 PO (12:12)
[2021-09-04] MEDS ORDERED: FENO145T26 PO (13:05)
[2021-09-04] MEDS ORDERED: VENL37.589 PO (13:05)
[2021-09-04] MEDS ORDERED: INSU100I39 SQ (13:05)
[2021-09-04] MEDS ORDERED: INSU100I31 SQ (13:05)
[2021-09-04] MEDS ORDERED: ATOR20TA66 PO (13:08)
[2021-09-04] MEDS ORDERED: LISI5TAB22 PO (13:08)
[2021-09-04] MEDS ORDERED: hydrALAZINE 20mg/ml inj. IV PRN (13:30)
--- NOTE | 2021-09-04 19:59 | NUR ---
Spoke with Poornima BRYANT regarding high BP. RN gave hydralazine IV for 199/100 BP. Poornima BRYANT communicated to continue oral contrast for potential repeat MRI tomorrow.
[2021-09-04 20:15] VITALS: BP 196/91
--- NOTE | 2021-09-04 20:30 | NUR ---
Received report from ANA Thomas 2009: Patient brought up via [employer], with belongings, and accompanied her. Patient has refused to have another MRI tomorrow.
[2021-09-04] MEDS ORDERED: GADOTERATE MEGLUMINE 10 MMOL/20 ML SYRINGE IV ONE (20:44)
[2021-09-04] MEDS ORDERED: Melatonin 3mg tablet PO SCH (21:00)
[2021-09-04] MEDS ORDERED: diatr meglu/diatrizoate 30ml oral sol.-(3 dose) bottle PO SCH (21:00)
[2021-09-04] MEDS ORDERED: insulin glargine (Lantus) pen - multi-dose SQ SCH (21:00)
[2021-09-04 22:00] VITALS: BP 161/88
[2021-09-05] MEDS: normal saline 1000ml 1,000 ML IV SCH (01:47)
[2021-09-05] MEDS: ondansetron/PF 4mg/2ml inj IV PRN (03:50)
--- NOTE | 2021-09-05 03:56 | NUR ---
[phone] MESSAGE: [phone]: DX pancreatitis, Patient has a migraine. Can I get something ordered for it? Scot [phone]
[2021-09-05] MEDS ORDERED: CAFFEINE PO ONE (04:11)
[2021-09-05] MEDS ORDERED: ASPIRIN PO ONE (04:11)
[2021-09-05] MEDS ORDERED: ACETAMINOPHEN PO ONE (04:11)
[2021-09-05 06:00] VITALS: BP 109/66
--- NOTE | 2021-09-05 06:12 | NUR ---
Problems reprioritized. Patient report given, questions answered & plan of care reviewed with ANA Parisi.
[2021-09-05 07:25] LABS: BASOPHILS # (AUTO) 0.1 X10'3 (0-0.2); BASOPHILS % (AUTO) 0.3 % (0-1); EOSINOPHILS # (AUTO) 0.3 X10'3 (0-0.9); EOSINOPHILS % (AUTO) 2.1 % (0-6); HEMATOCRIT 33.9 % (35.0-45.0); HEMOGLOBIN 11.2 g/dl (12.0-16.0); LYMPHOCYTES # (AUTO) 2.6 X10'3 (1.1-4.8); LYMPHOCYTES % (AUTO) 16.3 % (21-51); MEAN CORPUSCULAR HEMOGLOBIN 27.8 PG (27.0-31.0); MEAN CORPUSCULAR HGB CONC 32.9 g/dL (33.0-36.5); MEAN CORPUSCULAR VOLUME 84.4 FL (78-98); MEAN PLATELET VOLUME 9.5 FL (7.4-10.4); MONOCYTES % (AUTO) 6.4 % (2-12); NEUTROPHILS # (AUTO) 12.1 X10'3 (1.8-7.7); NEUTROPHILS % (AUTO) 74.9 % (42-75); PLATELET COUNT 320 X10'3 (140-440); RED BLOOD COUNT 4.02 X10'6 (4.20-5.60); RED CELL DISTRIBUTION WIDTH 14.3 % (11.5-14.5); WHITE BLOOD COUNT 16.2 X10'3 (4.5-11.0)
[2021-09-05 07:45] LABS: ALBUMIN/GLOBULIN RATIO 0.8 (1.1-1.5); ALKALINE PHOSPHATASE 101 IU/L (46-116); ANION GAP 10 (8-16); BILIRUBIN,TOTAL 0.4 MG/DL (0.1-1.0); BLOOD UREA NITROGEN 8 MG/DL (7-18); BUN/CREATININE RATIO 10.4 (6.6-38.0); CALCIUM 8.2 MG/DL (8.5-10.1); CHLORIDE 101 MMOL/L (99-107); CREATININE 0.77 MG/DL (0.40-0.90); GLUCOSE 260 MG/DL (70-104); LIPASE 373 U/L (73-393); SODIUM 132 MMOL/L (135-145); TOTAL CARBON DIOXIDE 21.1 MMOL/L (24-32); TOTAL PROTEIN 6.7 G/DL (6.4-8.2); eGFR 78 ML/MIN
[2021-09-05 07:54] LABS: POTASSIUM 4.1 MMOL/L (3.5-5.1)
[2021-09-05 07:58] LABS: ALANINE AMINOTRANSFERASE 21 U/L (12-78); ASPARTATE AMINO TRANSFERASE 9 U/L (10-37)
[2021-09-05] MEDS ORDERED: ACETAMINOPHEN 650 MG PO SCH (08:00)
[2021-09-05] MEDS ORDERED: lisinopril 5mg tablet PO SCH (08:00)
[2021-09-05] MEDS ORDERED: ascorbic acid 500mg tablet PO SCH (08:00)
[2021-09-05] MEDS ORDERED: fenofibrate 145mg tablet PO SCH (08:00)
[2021-09-05] MEDS ORDERED: atorvastatin 20mg tablet PO SCH (08:00)
[2021-09-05] MEDS ORDERED: venlafaxine XR 37.5mg cap (Q24H) PO SCH (08:00)
[2021-09-05] MEDS ORDERED: multivitamins, therapeutics tablet PO SCH (08:00)
[2021-09-05] MEDS: insulin Lispro (HumaLOG) vial - multi-dose SQ SCH (08:15)
[2021-09-05] MEDS: enoxaparin 40mg/0.4ml syringe SUBCUT SCH (08:19)
[2021-09-05] MEDS: docusate sod 100mg capsule PO SCH (08:24)
[2021-09-05 10:00] VITALS: BP 132/81
[2021-09-05] MEDS ORDERED: ONDA4TAB12 PO (10:58)
--- NOTE | 2021-09-05 11:53 | NUR ---
DM consult: Pt with T2DM, current A1c 11.3%. Pt seen at bedside for written and verbal DM education. Pt states she just recently started seeing a new physician at [facility] one month ago for DM management and reports a f/u appointment this Wednesday. Pt states she takes her DM medications per rx without difficulties which is short and long acting insulin. Pt reports checking her BG levels about four times a day with resulting numbers in the 200s to 300s. Per pt she used to not watch her CHO intake however has recently made some dietary changes. Noted pt with h/o multiple episodes of pancreatitis with significantly elevated lipid panel at past visit in 2019 with TG 4381 mg/dL and CHOL 432 mg/dL though no lipid panel this admit. D/w patient recommendation to discuss obtaining a lipid panel and potential need for pancreatic enzymes with outpatient physician. Also discussed recommendation with patient's bedside RN though pt is pending discharge at this time. All of patient's questions were answered at this time. RD contact information provided and pt encouraged to reach out if needed. Pt endorses a good appetite, reports honey is only food allergy, and denies difficulty chewing or swallowing. Will continue to follow. Addendum: 09/05/21 at [address] Amended: Links added.
== END 2021-09-05 11:55 | disposition home or self-care (01) | DRG 251 ==
LOC: ER 21:18 → ED HOLD 09-04 03:56 → ORTHO 4S 09-04 20:13
PROVIDERS: ADMIT Internal Medicine; ATTEND Family Medicine
DX: R10.9 Unspecified abdominal pain (principal); K86.89 Other specified diseases of pancreas; D72.829 Elevated white blood cell count, unspecified; E11.9 Type 2 diabetes mellitus without complications; E78.00 Pure hypercholesterolemia, unspecified; E78.5 Hyperlipidemia, unspecified; R11.2 Nausea with vomiting, unspecified; K21.9 Gastro-esophageal reflux disease without esophagitis; F17.210 Nicotine dependence, cigarettes, uncomplicated; I10 Essential (primary) hypertension; K86.1 Other chronic pancreatitis; Z79.899 Other long term (current) drug therapy; Z83.3 Family history of diabetes mellitus; Z88.5 Allergy status to narcotic agent; Z91.018 Allergy to other foods
CPT/HCPCS: 36415; 74176; 74183; 76700; 80053; 80305; 80320; 81001; 82948; 83036; 83690; 85025; 87081; 87088; 93005; 99285; A9575; C9113; G0378; J0360; J1170; J1650; J1815; J1885; J2405; J2765; J7030; Q9963